=== PATIENT | male | born 1960 | race Caucasian/White ===

== ENCOUNTER 2022-03-09 06:14 | Day surgery (SDC) | payer BC ==
[~2022-03-09] VITALS: Ht 182.9 cm; Wt 65.9 kg
[~2022-03-09 06:14] MED LIST: ACET325T9 PO; HYDROmorphone 2 MG/ML INJ. IVP PRN; IV RINGERS,LACTATED 1000ML 1,000 ML IV SCH; MORPHINE SULFATE 2 MG/ML INJ. IVP PRN; NAPR220T70 PO; PROCHLORPERAZINE 10 MG/2 ML VIAL. IVP PRN; ceFAZolin SODIUM IV Push 1 GM VIAL. IVP PRN; fentaNYL PF VIAL 100 MCG/2 ML VIAL IVP PRN
[2022-03-09] MEDS ORDERED: SURGICEL HEMOSTAT 4X8 EACH. ONE (06:52)
[2022-03-09] MEDS ORDERED: BUPIVACAINE-EPI 0.5% 30 ML VIAL KIT. ONE (06:52)
[2022-03-09] MEDS ORDERED: IOHEXOL 300 MG/ML 50 ML VIAL. ONE (06:52)
[2022-03-09] MEDS ORDERED: ROCURONIUM 50 MG/5 ML VIAL. ONE (07:17)
[2022-03-09] MEDS ORDERED: MIDAZOLAM HCL/PF 2 MG/2 ML VIAL. ONE (07:17)
[2022-03-09] MEDS ORDERED: fentaNYL PF VIAL 100 MCG/2 ML VIAL ONE ×2 (07:17→08:12)
[2022-03-09] MEDS ORDERED: ONDANSETRON PF 4 MG/2 ML VIAL. ONE (07:18)
[2022-03-09] MEDS ORDERED: LIDOCAINE 2% PF 5 ML VIAL. ONE (07:18)
[2022-03-09] MEDS ORDERED: PROPOFOL 10 MG/ML (20ML) VIAL. IV ONE (07:18)
[2022-03-09] MEDS ORDERED: DEXAMETHASONE SOD PHOS 4 MG/ML VIAL ONE (07:18)
[2022-03-09] MEDS ORDERED: SEVOFLURANE 61 TO 120 MINUTES. IH ONE (07:18)
[2022-03-09] MEDS ORDERED: PHENYLEPHRINE in 0.9% NACL PF 1 MG/10 ML SYRINGE. IV ONE (07:45)
[2022-03-09] MEDS ORDERED: GLYCOPYRROLATE 1 MG/5 ML VIAL. ONE (08:09)
--- NOTE | 2022-03-09 08:38 | RAD ---
Intraoperative cholangiogram Indication: Abdominal pain. Cholangiogram performed the in surgery during cholecystectomy Fluoroscopy time: 42 seconds Total images: 4 images Findings: The CBD is normal in caliber. No filling defects seen to suggest a stone. Contrast passage into the duodenum is seen with no evidence of obstruction. Please refer to report by operating surgeon as well. Impression: No evidence of CBD stones or obstruction. Electronically signed by: Brice Richardson MD (03/09/2022 8:35 AM) [id number]
--- NOTE | 2022-03-09 08:56 | PDOC4 ---
Operative Note Operative Note Operative Note: Preoperative Diagnosis: Gallbladder mass Postoperative Diagnosis: Same Procedure: Laparoscopic cholecystectomy with intraoperative cholangiogram Surgeons: Nestor Street Engineer: Concetta Zaldivar MS 3 Anesthesia: Gen. Estimated Blood Loss: 10 mL Specimen: Gallbladder to pathology Drains: None Complications: None Indications: The patient is a 61-year-old male who underwent evaluation for abdominal pain. This showed abnormal findings within the gallbladder concerning for a possible mass. Surgical treatment was offered by means of a laparoscopic cholecystectomy. The risks of surgery were discussed which include bleeding, infection, bile duct injury, bile leak, pain, the potential for additional surgeries or procedures. The patient understands and would like to proceed. Description: The patient was taken to the operating room and laid supine on the operating table. General anesthesia was performed. The abdomen was prepped with ChloraPrep and draped in a standard surgical fashion. A small infraumbilical incision was made with a scalpel. The Veress needle was then inserted and a pneumoperitoneum was then created. A 5 mm trocar was then inserted and the laparoscope was introduced. In the upper midabdomen a 5 mm trocar was inserted and in the right upper quadrant two 2.3 mm mini lap graspers were inserted. The gallbladder was retracted cephalad. The cystic duct was dissected free from surrounding tissues. One clip was placed on the duct near the gallbladder junction. An opening was made in the duct and a cholangiocatheter placed within and secured with a clip. Using contrast dye and fluoroscopy an intraoperative cholangiogram was performed that appeared unremarkable. The clip and catheter were then withdrawn. Three clips were placed on the cystic duct and it was divided. The cystic artery was then identified, dissected free, doubly clipped and divided as well. The gallbladder was then mobilized away from the liver with cautery. The umbilical 5 millimeter trocar was exchanged for an 11 millimeter trocar. The gallbladder was then placed in an endoscopic bag and extracted at the umbilical trocar site. The fascia there was closed with an 0 Vicryl suture and infiltrated with 0.5% marcaine. All blood and irrigation fluid was suctioned and hemostasis was good. The remaining ports were removed and the pneumoperitoneum was relieved. The skin incisions were closed using 4-0 Monocryl suture. Steri-Strips and dressing s were then applied. The patient tolerated the procedure well and was sent to the recovery room in stable condition. At the end of the case all counts were correct. AKBAR GUTHRIE MD March 09, 2022 08:56
[2022-03-09] MEDS ORDERED: OXYC1TAB15 PO (08:59)
--- NOTE | 2022-03-09 09:01 | DISCH ---
DISCHARGE INSTRUCTIONS Condition on Discharge Condition on Discharge: Stable Activity After Discharge Activity Instructions for Disc: Other, see below (No lifting over 20 lbs X 2 weeks, no driving while taking pain meds) Wound Incision Care Wound/Incision Care: Other, see below (May remove Band-Aids tomorrow and shower, Steri-Strips fall off on their own) Follow-Up Follow up with: Dr. Guthrie in 2 weeks in the office, call for appointment [phone] AKBAR UGTHRIE MD March 09, 2022 09:01
[2022-03-09] MEDS ORDERED: oxyCODONE/APAP 5/325 1 TAB TABLET PO ONE (09:30)
[2022-03-09 09:34] VITALS: BP 146/84
--- NOTE | 2022-03-10 17:42 | PATHOLOGY ---
[facility] Accession Number: [id number] . 01 Material submitted: . gallbladder - GALLBLADDER AND CONTENTS . 01 Clinical history: . GALLBLADDER MASS . 02 Diagnosis: Gallbladder, laparoscopic cholecystectomy: - Cholelithiasis. - Chronic cholecystitis. ([facility]; 03/10/2022) [facility] 03/10/2022 0947 Local . 02 Comment: There is no evidence of malignancy. (JP:deepti; 03/10/2022) . . 02 Electronically signed: . Mitchell Booker MD, Pathologist NPI- [id number] . 01 Gross description: . Fixative: Formalin Labeled: Gallbladder and contents Specimen received: A previously disrupted gallbladder specimen with a clip cystic margin Dimensions: 9.0 x 2.8 x 1.8 cm Serosa: Hollis-pink, smooth and glistening displaying a 0.2 x 0.2 cm defect in the neck region Adventia: Hollis-yellow, shaggy and cauterized Lymph node: Not identified Mucosa: Hollis-green, velvety, focally denuded and focally strictured near the fundal region Wall thickness: 0.1-0.4 cm Calculi: Multiple black, irregularly shaped, multi lobulated firm and friable choleliths, ranging in size from 0.1-1.7 cm, in greatest dimension. The largest cholelith is firmly lodged in the neck of the specimen. . A1- [employer] neck, body, fundus, and the cystic duct margin. ([facility]; 03/09/2022) [facility] 03/09/2022 2318 Local . 02 Pathologist provided ICD-10: K80.10 . 02 CPT . 892418 Specimen Comment: A courtesy copy of this report has been sent to [phone], [phone] Specimen Comment: [id number] Specimen Comment: Report sent to / DR ARVIZU Specimen Comment: A duplicate report has been generated due to demographic updates. Performed at: [facility] [address] [id number] MD Yonis Bain MD Phone: [phone] Performed at: 02 [facility] [address] [place], [place] [id number] MD Mitchell Booker MD Phone: [phone]
== END 2022-03-09 10:00 | disposition home or self-care (01) ==
LOC: SURG 06:14
PROVIDERS: ATTEND Surgery
DX: K80.10 Calculus of gallbladder with chronic cholecystitis without obstruction (principal); Z87.891 Personal history of nicotine dependence; Z72.89 Other problems related to lifestyle; Z79.899 Other long term (current) drug therapy; Z98.890 Other specified postprocedural states
CPT/HCPCS: 47563; 74300; A4209; A4213; A4364; A4930; A6219; C1887; J0690; J1100; J2250; J2370; J2405; J2704; J3010; J3490; Q9967; 88304; A4452; A4657